=== PATIENT | female | born 1950 | race Caucasian/White ===

== ENCOUNTER 2018-11-12 11:10 | Emergency (ER) | payer MEDICARE, BC ==
[~2018-11-12] VITALS: Ht 157.5 cm; Wt 108.6 kg
[~2018-11-12 11:10] MED LIST: CARDIZEM120 MG PO; CATAPRES0.1 MG PO; DEMEROL50 MG PO; LOPRESSOR25 MG PO; MIRAPEX0.5 MG PO; NORMODYNE / TR300 MG PO; TRIBENZOR 20-51 EACH PO; XANAX0.5 MG PO; ZESTRIL20 MG PO; ZOLOFT25 MG PO
[2018-11-12 11:31] VITALS: BP 140/74; Ht 157.5 cm; Wt 108.6 kg
[2018-11-12] MEDS ORDERED: KLONOPIN0.5 MG PO (11:34)
[2018-11-12 12:09] LABS: ALBUMIN 3.5 g/dL (3.4-5.0); ANION GAP 16.6 mmol/L (8-16); BILIRUBIN - TOTAL 0.46 mg/dL (0.2-1.3); CALCIUM 9.6 mg/dL (8.5-10.1); CARBON DIOXIDE 24.5 mmol/L (21.0-32.0); CREATININE - SERUM 1.3 mg/dL (0.6-1.3); POTASSIUM - SERUM 4.1 mmol/L (3.5-5.1); PROTEIN - SERUM 7.6 g/dL (6.4-8.2)
[2018-11-12 12:12] LABS: APPEARANCE HAZY (CLEAR); BILIRUBIN NEGATIVE (NEGATIVE); COLOR STRAW (YELLOW); GLUCOSE NEGATIVE (NEGATIVE); KETONE NEGATIVE (NEGATIVE); NITRITE NEGATIVE (NEGATIVE); PROTEIN NEGATIVE (NEGATIVE); SPECIFIC GRAVITY 1.015 (1.005-1.020); UROBILINOGEN NORMAL (NORMAL)
[2018-11-12 12:14] LABS: EPITHELIAL CELLS 0-5 /hpf (0-5)
[2018-11-12 12:15] LABS: BACTERIA FEW /hpf (NONE SEEN); MUCUS <1+ /lpf (NONE SEEN); WHITE CELLS - URINE OCC /hpf (0-5)
[2018-11-12 12:24] LABS: BASOPHILS 0.4 % (0-2); EOSINOPHILS 1.9 % (0-7); HEMATOCRIT 43.7 % (36.0-48.0); HEMOGLOBIN 14.5 g/dL (12-16); IMMATURE GRANULOCYTES 0.2 % (0-5); LYMPHOCYTES 21.5 % (15-50); MCH 29.2 pg (26.0-34.0); MCHC 33.2 g/dL (31.0-37.0); MCV 87.9 fL (80.0-100.0); MEAN PLATELET VOLUME 10.5 fL (7.4-10.4); MONOCYTES 6.4 % (2-11); NEUTROPHILS 69.6 % (40-80); PLATELET COUNT 244 10x3/uL (130-400); RBC 4.97 10x6/uL (4.00-5.40); RDW 13.4 % (11.5-14.5); WBC 9.4 10x3/uL (4.8-10.8)
== END 2018-11-12 13:49 | disposition left against medical advice (07) ==
LOC: D.ER 11:10
PROVIDERS: Family Medicine
DX: K62.5 Hemorrhage of anus and rectum (principal)

== ENCOUNTER → 2019-02-28 07:39 | Day surgery (SDC) | payer MEDICARE, BC ==
[~2019-02-28] VITALS: Ht 157.5 cm; Wt 109.1 kg
[~2019-02-28 07:39] MED LIST changes: +ALDACTONE25 MG PO; +KLONOPIN0.5 MG PO
[2019-02-28 08:13] LABS: HEMATOCRIT 40.7 % (36.0-48.0); HEMOGLOBIN 13.5 g/dL (12-16); MCHC 33.2 g/dL (31.0-37.0); MCV 87.5 fL (80.0-100.0); MEAN PLATELET VOLUME 10.3 fL (7.4-10.4); RBC 4.65 10x6/uL (4.00-5.40); RDW 13.7 % (11.5-14.5); WBC 6.3 10x3/uL (4.8-10.8)
[2019-02-28 08:19] LABS: ANION GAP 13.6 mmol/L (8-16); CALCIUM 9.3 mg/dL (8.5-10.1); CARBON DIOXIDE 24.2 mmol/L (21.0-32.0); CREATININE - SERUM 1.2 mg/dL (0.6-1.3); POTASSIUM - SERUM 3.8 mmol/L (3.5-5.1)
[2019-02-28 08:53] LABS: APTT 32.8 SECONDS (22.8-39.4); INR 1.14 (0.85-1.17); PROTIME 14.1 SECONDS (11.6-15.0)
[2019-02-28 10:01] VITALS: Ht 157.5 cm; Wt 109.1 kg
--- NOTE | 2019-02-28 11:07 | NUR ---
1055-RECD TO ROOM FROM GI LAB. DR ARRINGTON IN TO REPORT FINDINGS.
--- NOTE | 2019-02-28 11:30 | NUR ---
1105-UP TO BATHROOM, VOIDS 1115-FULL LIQUIDS SERVED.
--- NOTE | 2019-03-01 15:43 | OP ---
PATIENT NAME: DONY LUZ MEDICAL RECORD: [id number] :46 LOCATION:[facility] ADMISSION DATE: SURGEON: DELMA ARRINGTON DO DATE OF OPERATION: 02/28/2019 PROCEDURE: Colonoscopy with biopsies. INDICATIONS FOR PROCEDURE: History of colon polyps, diverticulosis of colon, lower abdominal pain, hematochezia, rectal pain. SCOPE: Olympus video pediatric colonoscope. MEDICATIONS: Propofol 310 mg IV per anesthesia. WITHDRAWAL TIME: 12 minutes. ESTIMATED BLOOD LOSS: Minimal. COMPLICATIONS: None. FINDINGS: Informed consent was given. The patient was made comfortable with the above medication. After reaching an adequate level of sedation by slow IV push, the patient was placed on her left side. A digital rectal examination was performed and was normal. The endoscope was then advanced under direct visualization through the rectum to the cecum and terminal ileum. The endoscope was slowly withdrawn and mucosa was carefully examined. The prep quality was good. There were multiple diverticula without evidence of diverticulitis noted throughout the entire colon. In the sigmoid colon, there were some vascular changes with decreased vascularity and possibly a granular appearance of the segment. For this reason, biopsies were taken with cold forceps to submit for histology. Retroflexion was performed in the rectum with visualization of grade I internal hemorrhoids without bleeding. On the patient's digital examination, there were external hemorrhoids as well. The endoscope was withdrawn from the patient. The patient tolerated the procedure well and there were no complications. IMPRESSION: 1. Internal and external hemorrhoids. 2. Moderate diverticulosis of the entire colon. 3. Change of vascularity and granularity in the sigmoid colon which may be consistent with colitis. Biopsies are pending. Of note, the patient had similar changes in 2017 and biopsies from this site were normal. PLAN AND RECOMMENDATIONS: 1. Discharge home when recovery parameters are met. 2. Follow up biopsy specimen results. 3. High fiber diet. 4. Continue current medications including MiraLax. Titrate MiraLax to maintain 1-2 bowel movements daily. 5. Recall colonoscopy in 5 years based on personal history of polyps. 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
== END | disposition home or self-care (01) ==
LOC: D.OPS 07:39
PROVIDERS: Anesthesiology; ATTEND Internal Medicine Gastroenterology
DX: Z86.010 Personal history of colon polyps (principal); R10.9 Unspecified abdominal pain; K64.4 Residual hemorrhoidal skin tags; K64.8 Other hemorrhoids; K57.90 Diverticulosis of intestine, part unspecified, without perforation or abscess without bleeding; Z01.812 Encounter for preprocedural laboratory examination

== ENCOUNTER → 2019-05-25 06:58 | Outpatient (CLI) | payer MEDICARE, BC ==
[2019-02-28 10:01] VITALS: BMI 44.0
== END | disposition home or self-care (01) ==
LOC: D.US 06:58
PROVIDERS: ATTEND Nurse Practitioner Family
DX: R10.9 Unspecified abdominal pain (principal)